=== PATIENT | male | born 1995 | race Caucasian/White ===

== ENCOUNTER 2022-03-02 08:36 | Outpatient (CLI) | payer OTHER, SELFPAY ==
--- NOTE | 2022-03-02 08:15 | CRLHL7_ITS ---
For Patients: As a result of the Century Cures Act, medical imaging exams and procedure reports are released immediately into your electronic medical record. You may view this report before your referring provider. If you have questions, please contact your health care provider. Technique: Double-contrast esophagram performed after the uneventful administration of effervescent crystals and thick barium followed by thin barium. Fluoroscopy time 1 minutes 4 seconds. Indication: Dysphagia, choking Comparison: 11/16/2011 Findings: Esophagus: Normal morphology and motility. No stricture or mass. Gastroesophageal reflux: Trace. No hernia on today`s study. Impression: Dari spontaneous reflux without inflammation or hernia. Normal esophageal motility. Normal swallowing mechanism. Upper esophagus normal. Dictated by Félix Kim MD @ 03/02/2022 9:33:54 AM (Electronically Signed)
== END 2022-03-02 08:37 | disposition home or self-care (01) ==
LOC: RAD 08:37
PROVIDERS: PCP Pediatrics; Visit Provider Family Medicine
DX: R13.10 Dysphagia, unspecified (principal)
CPT/HCPCS: 74221

== ENCOUNTER 2022-06-13 09:39 | Outpatient (CLI) | payer OTHER, SELFPAY ==
--- NOTE | 2022-06-13 10:52 | W.ANESCHARGE ---
Anesthesia Charges Start Date/Time Anesthesia Start Date: 06/13/22 Anesthesia Start Time: 10:15 Stop Date/Time Anesthesia Stop Date: 06/13/22 Anesthesia Stop Time: 10:45 Summary Emergency: No
== END 2022-06-13 09:40 | disposition home or self-care (01) ==
LOC: OP CLINIC 09:41
PROVIDERS: PCP Family Medicine; Visit Provider Internal Medicine Gastroenterology
DX: R13.10 Dysphagia, unspecified (principal); K22.89 Other specified disease of esophagus; K31.89 Other diseases of stomach and duodenum
CPT/HCPCS: 00731; 43239; 88305; J2704